=== PATIENT | female | born 1975 | race Caucasian/White ===

== ENCOUNTER 2019-04-26 23:46 | Emergency (ER) | payer MEDICAID ==
[~2019-04-26] VITALS: Ht 154.9 cm; Wt 92.5 kg
[2019-04-26 23:56] VITALS: Ht 154.9 cm; Wt 92.5 kg
[2019-04-27 01:17] VITALS: BP 94/44
== END 2019-04-27 01:17 | disposition home or self-care (01) ==
LOC: ED 23:46
DX: K62.89 Other specified diseases of anus and rectum (principal); K62.5 Hemorrhage of anus and rectum; F31.9 Bipolar disorder, unspecified; Z98.890 Other specified postprocedural states; Z98.51 Tubal ligation status
CPT/HCPCS: J1885

== ENCOUNTER 2019-04-30 18:06 | Emergency (ER) | payer MEDICAID ==
[~2019-04-30] VITALS: Ht 154.9 cm; Wt 89.5 kg
[2019-04-30 21:59] VITALS: BP 115/70
== END 2019-04-30 21:59 | disposition home or self-care (01) ==
LOC: ED 18:06
DX: H10.89 Other conjunctivitis (principal); R51 Headache

== ENCOUNTER 2019-09-15 09:34 | Emergency (ER) | payer MEDICAID ==
[~2019-09-15] VITALS: Ht 157.5 cm; Wt 83.0 kg
[2019-09-15 09:43] VITALS: Ht 157.5 cm; Wt 83.0 kg
[2019-09-15 11:55] VITALS: BP 125/65
== END 2019-09-15 11:55 | disposition home or self-care (01) ==
LOC: ED 09:34
DX: M77.9 Enthesopathy, unspecified (principal)

== ENCOUNTER 2019-09-19 00:11 | Emergency (ER) | payer MEDICAID ==
[~2019-09-19] VITALS: Ht 157.5 cm; Wt 84.1 kg
[2019-09-19 00:14] VITALS: Ht 157.5 cm; Wt 84.1 kg
[2019-09-19 04:25] VITALS: BP 116/71
== END 2019-09-19 04:25 | disposition home or self-care (01) ==
LOC: ED 00:11
DX: T28.5XXA Corrosion of mouth and pharynx, initial encounter (principal); Y93.89 Activity, other specified; Y92.89 Other specified places as the place of occurrence of the external cause; Y99.8 Other external cause status

== ENCOUNTER 2019-10-14 12:44 | Emergency (ER) | payer MEDICAID ==
[~2019-10-14] VITALS: Ht 154.9 cm; Wt 83.9 kg
[2019-10-14 12:59] VITALS: Ht 154.9 cm; Wt 83.9 kg
[2019-10-14 14:06] LABS: microscopic required? NO
[2019-10-14 14:19] LABS: BASOPHIL % 0.8 % (0-2); PLATELET COUNT 312 x10^3mcL (130-400); RED CELL DISTRIBUTION WIDTH 13.2 % (11.5-14.5)
[2019-10-14 14:43] LABS: urine erythrocyte NEGATIVE (NEGATIVE)
[2019-10-14 15:00] LABS: ALBUMIN 3.4 g/dL (3.4-5.0); ALT/SGPT 23 U/L (14-59); AST/SGOT 15 U/L (15-37); BILIRUBIN TOTAL 0.59 mg/dL (0.20-1.00); CALCIUM 8.7 mg/dL (8.5-10.1); CHLORIDE SERUM 103 mmol/L (98-107); CREATININE SERUM 0.7 mg/dL (0.6-1.0); GFR1 > 60 mL/min; GLUCOSE SERUM 91 mg/dL (74-106); POTASSIUM SERUM 3.9 mmol/L (3.5-5.1); SODIUM SERUM 139 mmol/L (136-145); TOTAL PROTEIN, SERUM 7.2 g/dL (6.4-8.2)
[2019-10-14 15:01] LABS: ALKALINE PHOSPHATASE 64 U/L (46-116)
[2019-10-14 15:32] LABS: AMPHETAMINE QUAL UR POSITIVE (See below)
[2019-10-14 16:21] VITALS: BP 111/65
== END 2019-10-14 16:21 | disposition home or self-care (01) ==
LOC: ED 12:44
PROVIDERS: Student in an Organized Health Care Education/Training Program
DX: R51 Headache (principal); R55 Syncope and collapse; F15.10 Other stimulant abuse, uncomplicated; R11.2 Nausea with vomiting, unspecified; R53.1 Weakness; Z90.89 Acquired absence of other organs
CPT/HCPCS: 83880; J1200; J1885; J2765; Q0092

== ENCOUNTER 2019-11-28 21:59 | Emergency (ER) | payer MEDICAID ==
[~2019-11-28] VITALS: Ht 154.9 cm; Wt 81.3 kg
[2019-11-28 22:10] VITALS: BP 159/71; Ht 154.9 cm; Wt 81.3 kg
== END 2019-11-29 02:06 | disposition home or self-care (01) ==
LOC: ED 21:59
DX: B35.4 Tinea corporis (principal); Z90.89 Acquired absence of other organs

== ENCOUNTER 2020-05-30 10:03 | Emergency (ER) | payer OTHER ==
[~2020-05-30] VITALS: Ht 154.9 cm; Wt 83.5 kg
[2020-05-30 10:08] VITALS: Ht 154.9 cm; Wt 83.5 kg
[2020-05-30 11:05] VITALS: BP 120/83
== END 2020-05-30 11:05 | disposition home or self-care (01) ==
LOC: ED 10:03
DX: N12 Tubulo-interstitial nephritis, not specified as acute or chronic (principal); I10 Essential (primary) hypertension; Z98.890 Other specified postprocedural states; Z90.89 Acquired absence of other organs
CPT/HCPCS: J0696

== ENCOUNTER 2020-06-11 18:00 | Emergency (ER) | payer OTHER ==
[~2020-06-11] VITALS: Ht 154.9 cm; Wt 81.6 kg
[2020-06-11 18:25] VITALS: BP 122/82; Ht 154.9 cm; Wt 81.6 kg
== END 2020-06-11 19:34 | disposition home or self-care (01) ==
LOC: ED 18:00
DX: K13.70 Unspecified lesions of oral mucosa (principal); H92.02 Otalgia, left ear

== ENCOUNTER 2020-06-29 21:37 | Emergency (ER) | payer OTHER ==
[~2020-06-29] VITALS: Ht 154.9 cm; Wt 81.4 kg
[2020-06-29 21:56] VITALS: Ht 154.9 cm; Wt 81.4 kg
[2020-06-30 00:06] VITALS: BP 125/83
== END 2020-06-30 00:06 | disposition home or self-care (01) ==
LOC: ED 21:37
DX: N93.9 Abnormal uterine and vaginal bleeding, unspecified (principal); I10 Essential (primary) hypertension; E11.9 Type 2 diabetes mellitus without complications; Z90.89 Acquired absence of other organs; Z90.721 Acquired absence of ovaries, unilateral
CPT/HCPCS: 87491; 87591; J0696

== ENCOUNTER 2020-08-21 13:56 | Emergency (ER) | payer OTHER, SELFPAY ==
[~2020-08-21] VITALS: Ht 154.9 cm; Wt 81.6 kg
[2020-08-21 13:57] VITALS: Ht 154.9 cm; Wt 81.6 kg
[2020-08-21 16:06] VITALS: BP 110/75
== END 2020-08-21 16:06 | disposition home or self-care (01) ==
LOC: ED 13:56
DX: M54.5 Low back pain (principal); I10 Essential (primary) hypertension; E11.9 Type 2 diabetes mellitus without complications; F31.9 Bipolar disorder, unspecified; Z90.89 Acquired absence of other organs
CPT/HCPCS: J1885

== ENCOUNTER 2020-09-12 21:30 | Emergency (ER) | payer OTHER ==
[~2020-09-12] VITALS: Ht 154.9 cm; Wt 82.1 kg
[2020-09-12 21:49] VITALS: BP 132/74; Ht 154.9 cm; Wt 82.1 kg
== END 2020-09-12 22:23 | disposition home or self-care (01) ==
LOC: ED 21:30
DX: Z53.21 Procedure and treatment not carried out due to patient leaving prior to being seen by health care provider (principal)